=== PATIENT | female | born 1945 | race Caucasian/White ===

== ENCOUNTER → 2017-05-20 | Day surgery (SDC) | payer MEDICARE, OTHER ==
[~2017-05-20] VITALS: Ht 149.9 cm; Wt 96.2 kg
[~2017-05-20] MED LIST: ASPIR 8181 MG PO; CALCIUM600 MG PO; CENTRUM SILVER1 TAB PO; COZAAR25 MG PO; CPAP INH; ELAVIL50 MG PO; GLUCOPHAGE1000 MG PO; IMODIUM MULTI-1 EACH PO; KLOR-CON M2020 MEQ PO; LIPITOR10 MG PO; LOPRESSOR25 MG PO; NORCO 5-325 MG1 TAB PO; NOVOLOG MI100 UNIT/1 SUB-Q; NOVOLOG100 UNIT/M SUB-Q; PRILOSEC20 MG PO; PROBIOTIC1 EAC1 PO; VITAMIN D-40400 UNIT PO; WELLBUTRIN75 MG PO; ZOCOR20 MG PO
== END ==
LOC: GPOC 05-14 10:00 → GEND 07:06 → GPOC 07:30
PROC: 0D758ZZ Dilation of Esophagus, Via Natural or Artificial Opening Endoscopic (ICD-10-PCS; principal; 2017-05-20)
PROC: 0DJD8ZZ Inspection of Lower Intestinal Tract, Via Natural or Artificial Opening Endoscopic (ICD-10-PCS; 2017-05-20)
DX: Z12.11 Encounter for screening for malignant neoplasm of colon (principal); K22.2 Esophageal obstruction; K44.9 Diaphragmatic hernia without obstruction or gangrene; K57.30 Diverticulosis of large intestine without perforation or abscess without bleeding; G47.33 Obstructive sleep apnea (adult) (pediatric); M81.0 Age-related osteoporosis without current pathological fracture; I10 Essential (primary) hypertension; E66.9 Obesity, unspecified; E78.5 Hyperlipidemia, unspecified; E11.9 Type 2 diabetes mellitus without complications; M17.12 Unilateral primary osteoarthritis, left knee; K21.9 Gastro-esophageal reflux disease without esophagitis; Z68.42 Body mass index [BMI] 45.0-49.9, adult; Z99.89 Dependence on other enabling machines and devices
CPT/HCPCS: C1726; J2001; J7030

== ENCOUNTER → 2017-06-30 | Outpatient (CLI) | payer MEDICARE, OTHER | LOC: GBCOE 12:00 | DX: Z12.31 Encounter for screening mammogram for malignant neoplasm of breast (principal) | CPT/HCPCS: G0202 ==

== ENCOUNTER → 2017-07-05 | Outpatient (CLI) | payer MEDICARE, OTHER | END | disposition disaster alternative care site (69) | LOC: GRAD 14:16 | DX: R22.1 Localized swelling, mass and lump, neck (principal); R59.0 Localized enlarged lymph nodes ==

== ENCOUNTER → 2017-07-06 | Outpatient (CLI) | payer MEDICARE, OTHER | END | disposition disaster alternative care site (69) | LOC: GRAD 13:17 | DX: R59.0 Localized enlarged lymph nodes (principal); E11.59 Type 2 diabetes mellitus with other circulatory complications | CPT/HCPCS: Q9967 ==